=== PATIENT | male | born 1995 | race Caucasian/White ===

== ENCOUNTER 2016-11-09 07:27 | Emergency (ER) | payer OTHER ==
[~2016-11-09] VITALS: Ht 170.2 cm; Wt 68.0 kg
[2016-11-09 07:35] VITALS: BP 135/80
== END 2016-11-09 08:29 | disposition home or self-care (01) ==
LOC: ED 07:27
DX: S93.402A Sprain of unspecified ligament of left ankle, initial encounter (principal); X58.XXXA Exposure to other specified factors, initial encounter; Y93.67 Activity, basketball; Y99.8 Other external cause status; Y92.89 Other specified places as the place of occurrence of the external cause
CPT/HCPCS: Q0092

== ENCOUNTER 2017-06-30 15:02 | Emergency (ER) | payer OTHER ==
[~2017-06-30] VITALS: Ht 170.2 cm; Wt 69.4 kg
[2017-06-30 15:53] VITALS: Ht 170.2 cm; Wt 69.4 kg
[2017-06-30 16:48] LABS: UA SPECIFIC GRAVITY 1.015 (1.005-1.035); microscopic required? YES; urine erythrocyte NEGATIVE (NEGATIVE)
[2017-06-30 18:22] VITALS: BP 121/73
== END 2017-06-30 18:22 | disposition home or self-care (01) ==
LOC: ED 15:02
PROVIDERS: Emergency Medicine
DX: N34.2 Other urethritis (principal)
CPT/HCPCS: 87491; 87591; J0696; J1885; J2001

== ENCOUNTER 2017-11-04 15:15 | Emergency (ER) | payer SELFPAY ==
[~2017-11-04] VITALS: Ht 167.6 cm; Wt 66.2 kg
[2017-11-04 15:16] VITALS: BP 123/61; Ht 167.6 cm; Wt 66.2 kg
== END 2017-11-04 17:49 | disposition left against medical advice (07) ==
LOC: ED 15:15
DX: Z53.21 Procedure and treatment not carried out due to patient leaving prior to being seen by health care provider (principal)

== ENCOUNTER 2017-11-05 08:12 | Emergency (ER) | payer SELFPAY ==
[~2017-11-05] VITALS: Ht 167.6 cm; Wt 66.7 kg
[2017-11-05 08:15] VITALS: Ht 167.6 cm; Wt 66.7 kg
[2017-11-05 09:00] VITALS: BP 138/61
== END 2017-11-05 09:00 | disposition home or self-care (01) ==
LOC: ED 08:12
DX: S02.2XXA Fracture of nasal bones, initial encounter for closed fracture (principal); W22.8XXA Striking against or struck by other objects, initial encounter; Y93.89 Activity, other specified; Y92.89 Other specified places as the place of occurrence of the external cause; Y99.8 Other external cause status